=== PATIENT | female | born 1950 | race Caucasian/White ===

== ENCOUNTER 2018-04-10 07:14 | Outpatient (CLI) | payer MEDICARE ==
[2018-04-10] MEDS ORDERED: Iopamidol 370 76% 100 ML VIAL ONE (09:00)
--- NOTE | 2018-04-10 10:32 | CT ---
CT OF THE ABDOMEN AND PELVIS WITH IV CONTRAST: INDICATION: Diarrhea, bloating, and abdominal pain for the past year. COMPARISON: CT of the abdomen and pelvis dated 11/21/13. FINDINGS: No focal hepatic lesion is evident. The pancreas, adrenal glands, and spleen appear within normal li mits. The kidneys are normal appearing. No free fluid or enlarged lymph nodes are evident. There are mild vascular calcifications involving the distal abdominal aorta. There is a moderate amount of retained stool within the colon. Again seen is a rightward deviated re troverted uterus. The bladder is decompressed. No enlarged lymph nodes or free fluid are evident. There is mild degenerative disk disease at L4-5. No acute fracture or subluxation is evident. IMPRESSION: Moderate amount of retained stool within the colon. POS: RAY
== END 2018-04-10 07:15 | disposition home or self-care (01) ==
LOC: SCSCT 07:14
PROVIDERS: ATTEND Internal Medicine Gastroenterology
DX: K58.0 Irritable bowel syndrome with diarrhea (principal); K59.00 Constipation, unspecified
CPT/HCPCS: 74177; 82565

== ENCOUNTER 2018-08-29 14:12 | Outpatient (CLI) | payer MEDICARE ==
--- NOTE | 2018-08-29 18:00 | ULT ---
SONOGRAM RIGHT BREAST LIMITED SONOGRAM LEFT BREAST LIMITED 08/29/18 HISTORY: Breast lumps. FINDINGS: Sonographic evaluation of the right breast at the superolateral aspect and the left breast at the mari perolateral aspect was performed. Scattered fibroglandular densities. No solid or cystic masses. IMPRESSION: BIRADS 2: Benign Finding(s) Routine annual screening mammography (for women over age 40). Please separate report regarding diagnostic mammography performed on the same date. POS: RAY
== END 2018-08-29 14:13 | disposition home or self-care (01) ==
LOC: BICMAMMO 14:12
PROVIDERS: ATTEND Family Medicine
DX: N63.0 Unspecified lump in unspecified breast (principal); R92.1 Mammographic calcification found on diagnostic imaging of breast
CPT/HCPCS: 76642 ×2; 77066; G0279

== ENCOUNTER 2019-02-09 06:58 | Outpatient (CLI) | payer MEDICARE ==
--- NOTE | 2019-02-09 07:53 | ULT ---
ULTRASOUND ABDOMEN COMPLETE: DATE: 02/09/2019 HISTORY: 68-year-old female with right upper quadrant abdominal pain FINDINGS: Gallbladder: Normal wall thickness. No gallstones or sludge identified. No pericholecystic fluid. Liver: Normal parenchymal echogenicity. Bilateral kidneys: No hydronephrosis. Pancreas: Nonspecific sonographic appearance. Common duct caliber: 3 mm. Abdominal aorta: No aneurysm Inferior vena cava: Unremarkable where visualized. Spleen: No splenomegaly IMPRESSION: Normal.
== END 2019-02-09 06:59 | disposition home or self-care (01) ==
LOC: SCSULT 06:58
PROVIDERS: ATTEND Family Medicine
DX: R10.11 Right upper quadrant pain (principal)
CPT/HCPCS: 76700

== ENCOUNTER 2019-07-31 09:53 | Outpatient (CLI) | payer MEDICARE ==
--- NOTE | 2019-07-31 11:54 | ULT ---
CAROTID ULTRASOUND WITH DOPPLER: Date: 07/31/19 HISTORY: Amaurosis fugax. COMPARISON: None. TECHNIQUE: Hooks scale, color flow, Doppler imaging, and spectral waveform analysis performed in the carotid and vertebral arteries. FINDINGS: RIGHT CAROTID: No significant atherosclerotic disease. Peak systolic velocity of the common carotid artery is 93.7 cm/second. Peak systolic velocity of the internal carotid artery is 55.9 cm/second. Systolic ICA/CCA ratio is 0. 60. LEFT CAROTID: No significant atherosclerotic disease. Peak systolic velocity of the common carotid artery is 101.5 cm/second. Peak systolic velocity of the internal carotid artery is 76.6 cm/second. Systolic ICA/CCA ratio is 0.75. Antegrade flow in both vertebral arteries. IMPRESSION: No sonographic evidence of hemodynamically significant stenosis. POS: RAY
== END 2019-07-31 09:54 | disposition home or self-care (01) ==
LOC: SCSULT 09:53
PROVIDERS: ATTEND Family Medicine
DX: G45.3 Amaurosis fugax (principal)
CPT/HCPCS: 93880

== ENCOUNTER 2020-12-01 10:14 | Outpatient (CLI) | payer MEDICARE ==
[2020-12-02 01:26] LABS: SARS-CoV-2 PCR by NAA Not Detected (NotDetected)
== END 2020-12-01 10:15 | disposition home or self-care (01) ==
LOC: LABBT 10:14
PROVIDERS: ATTEND Internal Medicine Gastroenterology
DX: Z20.822 Contact with and (suspected) exposure to COVID-19 (principal)
CPT/HCPCS: U0003; U0005; 87635

== ENCOUNTER → 2020-12-04 | Day surgery (SDC) | payer MEDICARE | LOC: SDC 08:07 | PROVIDERS: ATTEND Internal Medicine Gastroenterology | DX: K21.9 Gastro-esophageal reflux disease without esophagitis (principal); Z88.1 Allergy status to other antibiotic agents | CPT/HCPCS: 91010; 91034 ==

== ENCOUNTER 2022-04-08 08:14 | Outpatient (CLI) | payer MEDICARE | END 2022-04-08 08:15 | disposition home or self-care (01) | LOC: BICRAD 08:14 | PROVIDERS: ATTEND Physical Therapist | DX: M54.6 Pain in thoracic spine (principal); R07.82 Intercostal pain; M54.2 Cervicalgia; M25.511 Pain in right shoulder | CPT/HCPCS: 72072 ==

== ENCOUNTER 2023-01-04 12:39 | Outpatient (CLI) | payer MEDICARE | END 2023-01-04 12:40 | disposition home or self-care (01) | LOC: BICRAD 12:39 | PROVIDERS: ATTEND Dermatology | DX: J06.9 Acute upper respiratory infection, unspecified (principal) | CPT/HCPCS: 71046 ==

== ENCOUNTER 2024-03-29 13:02 | Outpatient (CLI) | payer OTHER | END 2024-03-29 13:03 | disposition home or self-care (01) | LOC: DTY/OP 13:02 | PROVIDERS: ATTEND Nurse Practitioner Family | DX: K58.2 Mixed irritable bowel syndrome (principal) | CPT/HCPCS: 97802 ==